=== PATIENT | female | born 2000 | race African-American/Black ===

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

== ENCOUNTER 2020-10-24 10:15 | Emergency (ER) | payer OTHER ==
[~2020-10-24] VITALS: Ht 170.2 cm; Wt 83.0 kg
[2020-10-24 13:33] LABS: BASOPHILS % 0.2 % (0.0-2.0); EOSINOPHILS % 0.5 % (0.0-5.0); HEMOGLOBIN. 12.4 g/dL (12.0-16.0); LYMPHOCYTES % 25.3 % (20.0-50.0); MEAN CORPUSCULAR HEMOGLOBIN 28.3 pg (28.0-32.0); MEAN CORPUSCULAR VOLUME 87.2 fL (81.0-99.0); MONOCYTES % 5.7 % (2.0-8.0); NEUTROPHILS % 68.3 % (40.0-76.0); PLATELET 242 x1000/uL (130-400); RED BLOOD CELL COUNT 4.37 mill/uL (4.2-5.4); RED CELL DISTRIBUTION WIDTH 14.3 % (11.6-14.6)
[2020-10-24 13:38] LABS: CHLORIDE 106 mEq/L (98-107)
[2020-10-24 13:43] LABS: INR 1.1; PROTHROMBIN TIME 11.6 sec (9.6-11.0)
[2020-10-24 13:49] LABS: B-HCG QUANTITATIVE < 1 mIU/mL (<3)
[2020-10-24 14:57] LABS: CLARITY URINE CLOUDY (CLEAR); COLOR URINE YELLOW (YELLOW); KETONES URINE TRACE (NEGATIVE); LEUKOCYTE ESTERASE URINE 1+ (NEGATIVE); NITRITE URINE NEGATIVE (NEGATIVE); OCCULT BLOOD URINE NEGATIVE (NEGATIVE); PROTEIN URINE TRACE (NEGATIVE); SPECIFIC GRAVITY URINE 1.033 (1.005-1.030)
[2020-10-24 15:09] LABS: *AMPHETAMINES SCREEN URINE NEGATIVE (NEGATIVE); *BENZODIAZEPINES SCREEN URINE NEGATIVE (NEGATIVE); *COCAINE SCREEN URINE NEGATIVE (NEGATIVE)
[2020-10-24 15:10] LABS: *BARBITURATES SCREEN URINE NEGATIVE (NEGATIVE); METHADONE URINE SCREEN NEGATIVE (NEGATIVE); OPIATES URINE SCREEN NEGATIVE (NEGATIVE); PHENCYCLIDINE URINE SCREEN NEGATIVE (NEGATIVE)
[2020-10-24 15:21] LABS: CANNABINOID URINE SCREEN PRESUMTIVE POSITIVE (NEGATIVE)
[2020-10-24] MEDS ORDERED: NITR-87 MT (16:44)
[2020-10-24 16:45] VITALS: BP 118/72
[2020-10-30 04:10] LABS: NEISSERIA GONORRHOEAE NAA Negative (Negative)
== END 2020-10-24 17:03 | disposition home or self-care (01) ==
LOC: ER 10:15
DX: N39.0 Urinary tract infection, site not specified (principal); R80.9 Proteinuria, unspecified; N17.0 Acute kidney failure with tubular necrosis; F12.10 Cannabis abuse, uncomplicated
CPT/HCPCS: 36415; 76700; 76856; 80053; 80305; 81003; 81025; 84702; 85025; 85610; 87491; 87591; 93005; 99285; Z7610

== ENCOUNTER 2020-11-18 09:45 | Emergency (ER) | payer OTHER ==
[~2020-11-18] VITALS: Ht 170.2 cm; Wt 77.0 kg
[~2020-11-18 09:45] MED LIST: NITR-87 MT
[2020-11-18] MEDS ORDERED: DOXYCYCLINE HYCLATE 100MG CAPSULE PO ONE (10:30)
[2020-11-18] MEDS ORDERED: CEFTRIAXONE SODIUM 250 MG/VIAL IM ONE (10:30)
[2020-11-18] MEDS ORDERED: METRONIDAZOLE 500MG TABLET PO ONE (10:30)
[2020-11-18] MEDS ORDERED: DOXY100C2 MT (10:36)
[2020-11-18] MEDS ORDERED: METR500T MT (10:36)
[2020-11-18] MEDS ORDERED: LIDOCAINE HCL 1% 20ML VIAL (Pyxis) INJ INFIL ONE (11:00)
[2020-11-18 11:22] VITALS: BP 124/66
== END 2020-11-18 11:45 | disposition home or self-care (01) ==
LOC: ER 09:45
DX: Z11.3 Encounter for screening for infections with a predominantly sexual mode of transmission (principal); K62.89 Other specified diseases of anus and rectum; F17.200 Nicotine dependence, unspecified, uncomplicated; F12.10 Cannabis abuse, uncomplicated; I49.9 Cardiac arrhythmia, unspecified
CPT/HCPCS: 93005; 96372; 99284; J0696; J3490